=== PATIENT | female | born 1990 | race Caucasian/White ===

== ENCOUNTER 2017-10-05 01:50 | Emergency (ER) | payer SELFPAY ==
[~2017-10-05] VITALS: Ht 165.1 cm; Wt 126.0 kg
[~2017-10-05 01:50] MED LIST: AMOX500T PO; PROM25SU8 PO; TYLE3 PO
[2017-10-05 01:57] VITALS: BP 161/79; PULSE 81; RESP 20; TEMP 97.8; O2SAT 100
[2017-10-05] MEDS ORDERED: PENI500T PO (02:15)
[2017-10-05] MEDS ORDERED: HYDR-3516 PO (02:15)
--- NOTE | 2017-10-05 02:15 | PD ---
HPI Chief Complaint: Oral / Dental Pain or Problem Time Seen by Provider: 02:12 Travel History International Travel<30 days: No Contact w/Intl Traveler<30days: No Traveled to known affect area: No History of Present Illness HPI 27-year-old complains of right upper dentalgia for about 2 days. Onset gradual. Timing constant. No fever. Pain is worse with palpation. PFSH Past Medical History Asthma: Yes (excercise induced) Diabetes: No Diminished Hearing: No GERD: Yes Hypertension: Yes Musculoskeletal: Yes (ANKLE SPRAIN) Immunizations Current: No Ulcer: Yes Menopausal: No : 0 Para: 0 Social History Alcohol Use: No Tobacco Use: No Substance Use: No Allergies-Medications (Allergen,Severity, Reaction): Coded Allergies: ibuprofen (Unverified Allergy, Severe, Nausea/Vomiting, 06/01/17) naproxen (Unverified Allergy, Intermediate, Nausea/Vomiting, 06/01/17) Reported Meds & Prescriptions Reported Meds & Active Scripts Active Review of Systems General / Constitutional: No: Fever Physical Exam Narrative GENERAL: Well-nourished well-developed 27-year-old female] SKIN: Focused skin assessment warm/dry. HEAD: Atraumatic. Normocephalic. EYES: Pupils equal and round. No scleral icterus. No injection or drainage. ENT: No nasal bleeding or discharge. Mucous membranes pink and moist. DENTITION: In good repair generally. The right upper first molar is status post L3 fracture from remote past and is diffusely tender without evidence of abscess adjacent. Data Data Last Documented VS Vital Signs Date Time Temp Pulse Resp B/P (MAP) Pulse Ox O2 Delivery O2 Flow Rate FiO2 10/05/17 01:57 97.8 81 20 161/79 (106) 100 Vital signs reviewed [facility] Medical Decision Making Medical Screen Exam Complete: Yes Emergency Medical Condition: Yes Medical Record Reviewed: Yes Differential Diagnosis Dental carry, abscess, contusion, dental fracture Narrative Course Pen VK and Lortab follow-up with dentist Diagnosis Primary Impression: Infected dental carries Additional Impression: Fractured tooth Qualified Codes: S02.5XXS - Fracture of tooth (traumatic), sequela Referrals: Dentist 1 day Med/Other Pt SpecificInfo: Prescription(s) given Scripts Hydrocodone-Acetaminophen (Hydrocodone-Acetaminophen) 5-325 mg Tab 1 TAB PO Q6H Y for PAIN SCALE 6 TO 10, #12 TAB 0 Refills Prov: Ryan Nayak MD 10/05/17 Penicillin V Potassium (Penicillin V Potassium) 500 Mg Tab 500 MG PO Q8H for Infection for 5 Days, #15 TAB 0 Refills Prov: Ryan Nayak MD 10/05/17 Disposition: 01 DISCHARGE HOME Condition: Stable Ryan Nayak MD Oct 05, 2017 02:15
[2017-10-05] MEDS ORDERED: ACETAMINOPHEN/HYDROcodone 325 MG/5 MG TAB PO ONE (02:30)
[2017-10-05] MEDS ORDERED: PENICILLIN V POTASSIUM 500 MG TAB PO ONE (02:30)
[2017-10-05 02:58] VITALS: BP 154/77
== END 2017-10-05 03:00 | disposition home or self-care (01) ==
LOC: PHED 01:50
DX: K02.9 Dental caries, unspecified (principal); K04.7 Periapical abscess without sinus; S02.5XXA Fracture of tooth (traumatic), initial encounter for closed fracture; J45.909 Unspecified asthma, uncomplicated; I10 Essential (primary) hypertension; K21.9 Gastro-esophageal reflux disease without esophagitis; Z88.6 Allergy status to analgesic agent
CPT/HCPCS: 99284